=== PATIENT | female | born 1990 | race African-American/Black ===

== ENCOUNTER 2017-05-24 01:51 | Emergency (ER) | payer BC ==
[~2017-05-24] VITALS: Ht 160 cm; Wt 72.7 kg
[2017-05-24 01:54] VITALS: TEMP 99.5
[2017-05-24 03:14] LABS: INFLUENZA A NEGATIVE; INFLUENZA B NEGATIVE; STREP SCREEN POSITIVE
[2017-05-24 03:24] LABS: COLLECTION METHOD CLEAN CATCH
[2017-05-24 03:29] LABS: MUCOUS Present /lpf; PH 5 (5-8); URINE APPEARANCE Clear; URINE BACTERIA None Seen /hpf; URINE BILIRUBIN Negative (NEGATIVE); URINE BLOOD Negative (NEGATIVE); URINE COLOR Yellow; URINE GLUCOSE Negative (NEGATIVE); URINE KETONE 1+ (NEGATIVE); URINE LEUKOCYTE ESTERASE Trace (NEGATIVE); URINE NITRATE Negative (NEGATIVE); URINE PROTEIN(semi-quant) Negative (NEGATIVE); URINE RBC 0-2 /hpf
[2017-05-24] MEDS ORDERED: OMNICEF 300MG300 MG PO (04:39)
[2017-05-24] MEDS ORDERED: PHENERGAN W/CO120 M1 PO (04:51)
[2017-05-24 04:57] VITALS: BP 124/81; PULSE 86
== END 2017-05-24 05:08 | disposition home or self-care (01) ==
LOC: COL.ER 01:51
PROVIDERS: Emergency Medicine
DX: J02.0 Streptococcal pharyngitis (principal)

== ENCOUNTER → 2018-03-20 | Outpatient (CLI) | payer BC ==
[~2018-03-20] MED LIST: OMNICEF 300MG300 MG PO; PHENERGAN W/CO120 M1 PO
== END ==
LOC: COL.RAD 15:22
DX: R07.81 Pleurodynia (principal)

== ENCOUNTER 2018-03-21 10:43 | Emergency (ER) | payer BC ==
[~2018-03-21] VITALS: Ht 160 cm; Wt 76.4 kg
[2018-03-21 10:55] VITALS: TEMP 98.9
[2018-03-21 11:38] LABS: BASO % 0.3 % (0.0-2.0); EOS % 0.6 % (0-4.0); GRAN # 4.7 (1.4-6.5); GRAN % 65.7 % (42.2-75.2); LYMPH # 1.7 (1.2-3.4); LYMPH % 23.2 % (20.0-51.0); MEAN CELL VOLUME 89 fl (80.0-100.0); MEAN CORPUSCULAR HEMOGLOBIN 29 pg (27.0-31.0); MEAN CORPUSCULAR HGB CONC 33 g/dl (33.0-37.0); MEAN PLATELET VOLUME 10.3 fl (7.4-10.4); MONO # 0.7 (0.1-0.6); MONO % 10.1 % (1.7-9.3); PLATELET COUNT 336 K/mm3 (130-400); RED BLOOD COUNT 4.14 M/mm3 (4.10-5.30); REDCELL DISTRIBUTION WIDTH-CV 14.1 % (11.5-14.5)
[2018-03-21 11:52] LABS: ALANINE AMINOTRANSFERASE 25 U/L (9-52); ALBUMIN 3.7 gm/dL (3.5-5.0); ALKALINE PHOSPHATASE 62 U/L (50-136); ANION GAP 4 mmol/L (7-16); AST,SGOT 21 U/L (15-37); BILIRUBIN,TOTAL 0.5 mg/dL (0.0-1.0); BLOOD UREA NITROGEN 9 mg/dL (7-17); C-REACTIVE PROTEIN 2.2 mg/dL (0.0-0.9); CALCIUM 9.2 mg/dL (8.4-10.2); CARBON DIOXIDE 28 mmol/L (22-30); CHLORIDE 107 mmol/L (98-107); CREATININE, serum 0.62 mg/dL (0.52-1.25); GLUCOSE 79 mg/dL (74-106); SODIUM 139 mmol/L (137-145); TOTAL PROTEIN 7.2 gm/dL (6.4-8.2)
[2018-03-21 11:53] LABS: HEMATOCRIT 36.8 % (37.0-47.0)
[2018-03-21 12:14] LABS: TROPONIN-I < 0.012 ng/mL (0.000-0.034)
[2018-03-21 12:38] VITALS: BP 118/79; PULSE 83
== END 2018-03-21 12:45 | disposition home or self-care (01) ==
LOC: COL.ER 10:43
PROVIDERS: Physician Assistant
DX: R07.89 Other chest pain (principal)